=== PATIENT | female | born 1985 | race Caucasian/White ===

== ENCOUNTER 2019-02-06 23:01 | Emergency (ER) | payer MEDICAID ==
[~2019-02-06] VITALS: Ht 157.5 cm; Wt 65.8 kg
[2019-02-06 23:17] VITALS: BP 128/74
[2019-02-07] MEDS ORDERED: FAMOTIDINE (20 MG) 20 MG TABLET ONE (00:28)
[2019-02-07] MEDS ORDERED: ONDANSETRON HCL 4 MG/5 ML SOLUTION ONE (00:28)
[2019-02-07] MEDS: FAMOTIDINE (20 MG) 20 MG TABLET PO ONE (00:34)
[2019-02-07] MEDS: ONDANSETRON HCL 4 MG/5 ML SOLUTION PO ONE (00:34)
[2019-02-07 00:45] LABS: APPEARANCE,URINE Clear (CLEAR); BILIRUBIN,URINE Negative (NEGATIVE); BLOOD, URINE Large Ery/uL (NEGATIVE); COLOR,URINE Yellow (YELLOW); KETONES,URINE Negative (NEGATIVE); LEUKOCYTE ESTERASE ,URINE Negative (NEGATIVE); NITRITE, URINE Negative (NEGATIVE); PROTEIN,URINE Negative (NEGATIVE); UGLUCOSE Negative (NEGATIVE); UROBILINOGEN,URINE 0.2 EU/dL (0.2)
[2019-02-07 01:06] LABS: BACTERIA,URINE Moderate /HPF (None Seen); RBC,URINE 21-50 /HPF (0-2); SQUAMOUS EPITHELIAL CELL,UR Few /HPF (None Seen)
[2019-02-07] MEDS ORDERED: MAG HYDROX/AL HYDROX/SIMETH 30 ML UDC ONE (01:30)
[2019-02-07] MEDS ORDERED: DICYCLOMINE HCL 10 MG CAPSULE PO ONE (01:30)
[2019-02-07] MEDS: MAG HYDROX/AL HYDROX/SIMETH 30 ML UDC PO ONE (01:37)
[2019-02-07] MEDS: DICYCLOMINE HCL 10 MG CAPSULE PO ONE (01:37)
== END 2019-02-07 01:39 | disposition home or self-care (01) ==
LOC: ER 23:05
DX: R11.0 Nausea (principal); N94.6 Dysmenorrhea, unspecified; K58.9 Irritable bowel syndrome, unspecified; R56.9 Unspecified convulsions; Z98.890 Other specified postprocedural states
CPT/HCPCS: 81000-TC; 84703-TC; 87086-TC; Q0162